=== PATIENT | female | born 1990 | race Caucasian/White ===

== ENCOUNTER 2018-09-30 09:56 | Emergency (ER) | payer OTHER, SELFPAY ==
[2018-09-30 10:11] VITALS: BP 112/76; PULSE 95; RESP 18; TEMP 37.1; O2SAT 100; BMI 30.7
--- NOTE | 2018-09-30 10:53 | ED.URI ---
HPI - URI/Sore Throat General Chief Complaint: Upper Respiratory Symptoms Stated Complaint: says tonsils are growing back/throat hurts Time Seen by Provider: 09/30/18 10:53 Source: patient Mode of arrival: ambulatory Limitations: no limitations History of Present Illness HPI Narrative: Patient is otherwise healthy 28-year-old female here for evaluation of which he thinks is her tonsil growing back in the right side of the back of her throat. She states that she has had sinus congestion and a sore throat for the past couple days. She states that she has had a small bump the back of her right throat. She does state that she has had this evaluated in the past and has had a biopsy performed of it and was told that it was just tissue overgrowth. She is here because she feels like she cannot breathe. Has not tried anything for her symptoms prior to arrival. No rashes. Related Data Allergies Allergy/AdvReac Type Severity Reaction Status Date / Time amoxicillin Allergy Severe Anaphylaxis Verified 09/30/18 10:06 doxycycline Allergy Severe Anaphylaxis Verified 09/30/18 10:06 fluconazole [From Diflucan] Allergy Severe Irritable Verified 09/30/18 10:06 Penicillins Allergy Severe Anaphylaxis Verified 09/30/18 10:07 cillins Allergy Severe Anaphylaxis Uncoded 09/30/18 10:07 Review of Systems Constitutional Denies fever(s) and Denies headache(s) Eyes Denies blurry vision and Denies diplopia ENT Ears, Nose, Mouth, and Throat: Denies vertigo, Denies dizziness, Denies dry mouth, Denies headache(s), Denies mouth lesions, Denies nasal trauma, Reports neck pain, Denies disequilibrium, Reports post nasal drip, Reports sinus pain, Reports sinus pressure, Reports sore throat and Reports throat swelling Cardiovascular Denies dyspnea Respiratory Denies cough, Denies dyspnea, Denies stridor and Denies wheezing Musculoskeletal Reports neck pain Integumentary/Breasts Denies lesions and Denies rash Neurologic Denies vertigo, Denies dizziness, Denies headache(s) and Denies disequilibrium Hematologic/Lymphatic Denies easy bleeding and Denies easy bruising Allergic/Immunologic Reports throat swelling and Denies wheezing PFSH Medical History Healthy adult (Acute) Surgical History History of tonsillectomy (Acute) Social History marital status: Smoking Status: Current every day smoker Exam Initial Vital Signs Initial Vital Signs: Vital Signs Temperature 98.7 F 09/30/18 10:11 Pulse Rate 95 H 09/30/18 10:11 Respiratory Rate 18 09/30/18 10:11 Blood Pressure 112/76 09/30/18 10:11 Pulse Oximetry 100 09/30/18 10:11 Const General: cooperative, healthy appearing, comfortable, well developed, well groomed and No acute distress Orientation: alert, awake and oriented x3 HENMT Head: normal to inspection, normocephalic and atraumatic Ears: TM's normal bilaterally Nose: external nose normal Face and sinus: normal facial exam Mouth: oral mucosae normal and tongue normal Teeth and gingiva: dentition normal and gingiva normal Throat: uvula midline, tonsils absent, uvula not displaced, no uvular edema and other (Patient with the small area of what appears to be inflamed tissue in the bed of the right tonsil.) Neck Lymphatic: lymphadenopathy Resp Effort & Inspection: normal respiratory effort Auscultation: clear to auscultation bilaterally Skin General: no rashes or lesions noted Lesions: no lesions Rashes: no rashes Neuro General: alert, awake and oriented x3 Extrem General: normal to inspection and capillary refill normal Course Vital Signs - 8 hr 09/30/18 10:11 09/30/18 12:00 Temperature 98.7 F Pulse Rate 95 H 78 Respiratory Rate 18 18 Blood Pressure 112/76 122/79 Pulse Oximetry 100 MDM - URI/Sore Throat Lab Data Point of Care Testing Rapid Strep A Negative MDM Narrative Medical decision making narrative: Strep is negative. She does have a small area of what appears to be inflamed soft tissue in the bed of or the right tonsil would be. No induration in this area. I had a long discussion with the patient regarding this. No indication for antibiotics. She is in no respiratory distress. Did discuss the use of decongestants secondary to the fact that she has obvious rhinorrhea. She was given return precautions. Both her and her expressed understanding and agreement this plan. Discharge Plan Departure Patient Disposition: Home Clinical Impression: Pharyngitis, Acute upper respiratory infection Discharge Date/Time: 09/30/18 11:38 Interventions: ED Discharge Assessment Last Done: 09/30/18 12:00 Instructions: DI for Viral Upper Respiratory Infection -- Adult Activity Restrictions/Additional Instructions: Recommend that you start taking a decongestant such as Claritin/Maritza/Zyrtec or the generic version of these medication. Also recommend you start a nasal spray such as Flonase or Nasonex as directed. Call your primary care doctor for follow-up. Return to the emergency department for any new or worsening symptoms
--- NOTE | 2018-09-30 11:58 | PC.NURSE ---
Late entry at 1100-Pt c/o sore throat, coughing, resolved fever last night. Has not had influenza vaccination for this season. No cervical adenopathy to palpate, no white patches noticed in tonsils.
[2018-09-30 12:00] VITALS: BP 122/79; PULSE 78; RESP 18
== END 2018-09-30 11:38 | disposition home or self-care (01) ==
PROVIDERS: Emergency Provider Emergency Medicine
DX: J02.9 Acute pharyngitis, unspecified (principal); J06.9 Acute upper respiratory infection, unspecified
CPT/HCPCS: 87880; 99282; 99283

== ENCOUNTER 2019-07-19 14:01 | Emergency (ER) | payer OTHER, SELFPAY ==
[2019-07-19 14:05] VITALS: BP 136/74; PULSE 99; RESP 18; TEMP 36.8; O2SAT 100; BMI 32.3
--- NOTE | 2019-07-19 14:11 | DI.RAD.S_ITS ---
PROCEDURE: XR FOOT LT MIN 3V INDICATIONS: Missed bottom step of ladder 1.5 weeks ago, pain in foot/toe TECHNIQUE: 3 views of the foot were acquired. COMPARISON: None. FINDINGS: Bones: No fractures or dislocations. No suspicious bony lesions. Soft tissues: No tibiotalar joint effusion. Achilles tendon appears normal. IMPRESSION: No visualized acute fracture or dislocation. However, if clinical concern and/or pain persist, short interval imaging followup in 7-10 days is recommended, as occult injury cannot be definitively excluded. Dictated by: Rufina Meza M.D. on 07/19/2019 at 14:52 Approved by: Rufina Meza M.D. on 07/19/2019 at 14:53
--- NOTE | 2019-07-19 14:57 | ED_ITS ---
HPI - Extremity Injury (Lower) General Chief Complaint: Extremity Injury, Lower Stated Complaint: might be broken ball of left foot a week ago Time Seen by Provider: 07/19/19 14:13 Source: patient Mode of arrival: ambulatory Limitations: no limitations History of Present Illness HPI Narrative: Patient is a 28-year-old female who presents with left toe pain. She says she stepped on a stair wrong about a week and half ago. She continues to have pain in her great toe. She is able to walk but touching is extremely sensitive. She occasionally has some numbness in her big toe. complaint: foot injury Onset (ago): week(s) (1.5) Related Data Allergies Allergy/AdvReac Type Severity Reaction Status Date / Time amoxicillin Allergy Severe Anaphylaxis Verified 09/30/18 10:06 doxycycline Allergy Severe Anaphylaxis Verified 09/30/18 10:06 fluconazole [From Diflucan] Allergy Severe Irritable Verified 09/30/18 10:06 Penicillins Allergy Severe Anaphylaxis Verified 09/30/18 10:07 cillins Allergy Severe Anaphylaxis Uncoded 09/30/18 10:07 Review of Systems Review of Systems Narrative: GENERAL: Denies chills,fever HEENT: Denies throat pain RESPIRATORY: Denies dyspnea, cough, wheezing CARDIOVASCULAR: Denies chest pain, palpitations GASTROINTESTINAL: Denies nausea, vomiting MUSCULOSKELETAL: See HPI SKIN: No rash, no laceration, no pruritus NEUROLOGIC: Denies weakness, dizziness, headache, numbness 8 point review of systems is negative except for those stated above and HPI [facility] Medical History Healthy adult (Acute) Surgical History History of tonsillectomy (Acute) Social History (Updated 09/30/18 @ 16:42 by Yaakov Singleton DO) marital status: Smoking Status: Current every day smoker Social History marital status: Smoking Status: Current every day smoker Exam Initial Vital Signs Initial Vital Signs: Vital Signs Temperature 98.3 F 07/19/19 14:05 Pulse Rate 99 H 07/19/19 14:05 Respiratory Rate 18 07/19/19 14:05 Blood Pressure 136/74 07/19/19 14:05 Pulse Oximetry 100 07/19/19 14:05 GENERAL: Well-appearing, well-nourished and in no acute distress. CARDIOVASCULAR: peripheral pulses in tact, cap refill <2 sec RESPIRATORY: No respiratory distress, speaks in full sentences without difficulty EXTREMITIES: Normal range of motion, no clubbing or edema. Neurovascularly intact Left great toe mild contusion. She is able to push up against some. No gross bony deformity distal pedal pulse intact. NEUROLOGICAL: Cranial nerves II through XII grossly intact. Normal gait and speech. SKIN: Warm, dry, no petechiae, no rashes or lesions. Course Orders Ordered: ED Orders 07/19/19 14:11 XR foot LT min 3V Stat Vital Signs Vital signs: Vital Signs - 8 hr 07/19/19 14:05 07/19/19 15:15 Temperature 98.3 F Pulse Rate 99 H 92 H Respiratory Rate 18 18 Blood Pressure 136/74 130/70 Pulse Oximetry 100 99 MDM - Extremity Injury (Lower) Imaging Data left foot: Radiologist's impression: PROCEDURE: XR FOOT LT MIN 3V INDICATIONS: Missed bottom step of ladder 1.5 weeks ago, pain in foot/toe TECHNIQUE: 3 views of the foot were acquired. COMPARISON: None. FINDINGS: Bones: No fractures or dislocations. No suspicious bony lesions. Soft tissues: No tibiotalar joint effusion. Achilles tendon appears normal. IMPRESSION: No visualized acute fracture or dislocation. However, if clinical concern and/or pain persist, short interval imaging followup in 7-10 days is recommended, as occult injury cannot be definitively excluded. Dictated by: Rufina Meza M.D. on 07/19/2019 at 14:52 Discharge Plan Departure Patient Disposition: Home Clinical Impression: Sprain of left great toe Qualifiers: Encounter type: initial encounter Qualified Code(s): S93.502A - Unspecified sprain of left great toe, initial encounter Discharge Date/Time: 07/19/19 15:15 Instructions: DI for Toe Sprain Activity Restrictions/Additional Instructions: *You have been diagnosed with left great toe sprain *What to do: At this time x-ray is neck if. Were supportive increase activity as tolerated, ice elevate, if you continue to have pain you may require repeat x-ray or even MRI with your PCP *Continue to take medications as directed Ibuprofen 600 mg every 6-8 hours if needed for pain *Follow up with your primary care provider in 2-3 days *Return to ER if you should have inability to walk weakness numbness tingling or any new, worsening or concerning symptoms
[2019-07-19 15:15] VITALS: BP 130/70; PULSE 92; RESP 18; O2SAT 99
== END 2019-07-19 15:15 | disposition home or self-care (01) ==
PROVIDERS: Emergency Provider Emergency Medicine
DX: S93.502A Unspecified sprain of left great toe, initial encounter (principal)
CPT/HCPCS: 73630; 99282; 99283